=== PATIENT | female | born 1940 | race Caucasian/White ===

== ENCOUNTER 2016-12-21 23:02 | Emergency (ER) | payer MEDICARE, OTHER ==
[~2016-12-21] VITALS: Ht 157.5 cm; Wt 81.8 kg
[~2016-12-21 23:02] MED LIST: CALCIUM CITRAT200 MG PO; CENTRUM SILVER1 CTB PO; CENTRUM SILVER1 TA1 PO; CITRACAL + D CA1 TAB PO; CYMBALTA 20MG20 MG PO; DIOVAN 160MG160 MG PO; DIOVAN320 MG PO; DITROPAN 5MG TAB5 MG PO; EXALGO12 MG PO; JANUVIA 100MG100 MG PO; JANUVIA50 MG PO; KLOR-CON 1010 MEQ PO; LASIX 40MG TABL40 MG PO; LEVEMIR100 U/ML SQ; LIDODERM PATCH TP; METAMUCIL1 PDR PO; MIRALAX238G PO; NORCO 325 MG-101 TAB PO; PERCOCET 325 MG1 TA2 PO; PERCOCET 325 MG1 TAB PO; PRILOTC; PRILOTC PO; TENORMIN 5050 MG/TAB PO; TRICOR 48MG48 MG PO; TRICOR145 MG PO; ULTRAM 50MG TAB50 MG PO; ZETIA 10MG TAB10 MG PO
[2016-12-21 23:10] VITALS: BP 179/87; PULSE 77; TEMP 98.9
[2016-12-21] MEDS ORDERED: JANUMXR100-1000 PO (23:20)
[2016-12-21] MEDS ORDERED: MYRBETR50MG PO (23:22)
[2016-12-21] MEDS ORDERED: DESYREL 50MG50 MG PO (23:22)
[2016-12-21] MEDS ORDERED: EXALGO12 MG PO (23:44)
== END 2016-12-21 23:55 | disposition home or self-care (01) ==
LOC: COL.ER 23:02
DX: M54.42 Lumbago with sciatica, left side (principal); E11.9 Type 2 diabetes mellitus without complications; I10 Essential (primary) hypertension

== ENCOUNTER → 2017-01-05 | Outpatient (CLI) | payer MEDICARE ==
[~2017-01-05] MED LIST changes: +DESYREL 50MG50 MG PO; +JANUMXR100-1000 PO; +MYRBETR50MG PO
== END ==
LOC: SUN.DIA 08:45
DX: E11.65 Type 2 diabetes mellitus with hyperglycemia (principal); Z79.84 Long term (current) use of oral hypoglycemic drugs; Z79.4 Long term (current) use of insulin; E66.9 Obesity, unspecified; Z71.3 Dietary counseling and surveillance; E78.5 Hyperlipidemia, unspecified; I10 Essential (primary) hypertension

== ENCOUNTER 2017-01-27 13:49 | Emergency (ER) | payer MEDICARE, OTHER ==
[~2017-01-27] VITALS: Ht 157.5 cm; Wt 81.8 kg
[2017-01-27 13:54] VITALS: TEMP 98.3
[2017-01-27 15:59] VITALS: BP 156/78; PULSE 80
== END 2017-01-27 16:01 | disposition home or self-care (01) ==
LOC: COL.ER 13:49
DX: S09.90XA Unspecified injury of head, initial encounter (principal); S00.33XA Contusion of nose, initial encounter; S60.212A Contusion of left wrist, initial encounter; W01.198A Fall on same level from slipping, tripping and stumbling with subsequent striking against other object, initial encounter; R40.2412 Glasgow coma scale score 13-15, at arrival to emergency department; E11.9 Type 2 diabetes mellitus without complications; Z79.84 Long term (current) use of oral hypoglycemic drugs

== ENCOUNTER → 2017-03-25 | Outpatient (CLI) | payer MEDICARE | LOC: MC.RAD 09:58 | DX: Z12.31 Encounter for screening mammogram for malignant neoplasm of breast (principal) ==

== ENCOUNTER → 2017-06-23 | Outpatient (CLI) | payer MEDICARE | LOC: SUN.DIA 11:44 | DX: E11.9 Type 2 diabetes mellitus without complications (principal); Z79.4 Long term (current) use of insulin; E78.5 Hyperlipidemia, unspecified; I10 Essential (primary) hypertension; E66.9 Obesity, unspecified; Z68.34 Body mass index [BMI] 34.0-34.9, adult; Z71.3 Dietary counseling and surveillance; Z87.891 Personal history of nicotine dependence | CPT/HCPCS: G0108 ==

== ENCOUNTER → 2017-09-21 | Outpatient (CLI) | payer MEDICARE | LOC: SUN.DIA 08:39 | DX: E11.9 Type 2 diabetes mellitus without complications (principal); Z79.4 Long term (current) use of insulin; E78.5 Hyperlipidemia, unspecified; I10 Essential (primary) hypertension; E66.9 Obesity, unspecified; Z68.34 Body mass index [BMI] 34.0-34.9, adult; Z71.3 Dietary counseling and surveillance; Z87.891 Personal history of nicotine dependence ==

== ENCOUNTER 2017-11-09 07:53 | Outpatient (RCR) | payer MEDICARE | END 2018-02-07 | LOC: WSST | DX: R13.10 Dysphagia, unspecified (principal) | CPT/HCPCS: G8996-GN; G8997-GN ==

== ENCOUNTER → 2018-01-18 | Outpatient (CLI) | payer MEDICARE | LOC: COL.RAD 07:49 | DX: R13.10 Dysphagia, unspecified (principal) | CPT/HCPCS: G8996-GN; G8997-GN; G8998-GN ==

== ENCOUNTER → 2018-01-31 | Outpatient (CLI) | payer MEDICARE | LOC: SUN.DIA 01-13 14:13 | DX: E11.9 Type 2 diabetes mellitus without complications (principal); Z79.4 Long term (current) use of insulin; E78.5 Hyperlipidemia, unspecified; I10 Essential (primary) hypertension; E66.9 Obesity, unspecified; Z68.34 Body mass index [BMI] 34.0-34.9, adult; Z71.3 Dietary counseling and surveillance; Z87.891 Personal history of nicotine dependence | CPT/HCPCS: G0108 ==

== ENCOUNTER 2018-02-11 08:45 | Outpatient (RCR) | payer MEDICARE | END 2018-03-06 | disposition home or self-care (01) | LOC: WSPT | DX: R59.1 Generalized enlarged lymph nodes (principal); Z90.11 Acquired absence of right breast and nipple; Z85.3 Personal history of malignant neoplasm of breast; Z92.3 Personal history of irradiation | CPT/HCPCS: G8987-GP; G8988-GP ==

== ENCOUNTER → 2018-05-02 | Outpatient (CLI) | payer MEDICARE | LOC: SUN.DIA 03-14 09:10 | DX: E11.9 Type 2 diabetes mellitus without complications (principal); Z79.4 Long term (current) use of insulin; E78.5 Hyperlipidemia, unspecified; I10 Essential (primary) hypertension; E66.9 Obesity, unspecified; Z68.35 Body mass index [BMI] 35.0-35.9, adult; Z71.3 Dietary counseling and surveillance; Z87.891 Personal history of nicotine dependence | CPT/HCPCS: G0108 ==

== ENCOUNTER 2018-08-09 14:38 | Emergency (ER) | payer MEDICARE ==
[~2018-08-09] VITALS: Ht 157.5 cm; Wt 84.1 kg
[2018-08-09 14:42] VITALS: TEMP 98.9
[2018-08-09 15:22] LABS: BASO % 0.7 % (0.0-2.0); EOS # 0.7 (0.0-0.7); EOS % 10.7 % (0-4.0); GRAN # 2.9 (1.4-6.5); GRAN % 48.1 % (42.2-75.2); HEMOGLOBIN 11.1 g/dl (12.5-16.0); LYMPH # 1.8 (1.2-3.4); LYMPH % 30.3 % (20.0-51.0); MEAN CELL VOLUME 81 fl (80.0-100.0); MEAN CORPUSCULAR HEMOGLOBIN 27 pg (27.0-31.0); MEAN CORPUSCULAR HGB CONC 33 g/dl (33.0-37.0); MEAN PLATELET VOLUME 8.8 fl (7.4-10.4); MONO # 0.6 (0.1-0.6); MONO % 9.5 % (1.7-9.3); PLATELET COUNT 247 K/mm3 (130-400); RED BLOOD COUNT 4.17 M/mm3 (4.10-5.30); REDCELL DISTRIBUTION WIDTH-CV 13.9 % (11.5-14.5)
[2018-08-09 15:23] LABS: HEMATOCRIT 33.8 % (37.0-47.0)
[2018-08-09 15:48] LABS: ERYTHROCYTE SEDIMENTATION RATE 23 mm/hr (0-30)
[2018-08-09] MEDS ORDERED: PERCOCET 325 MG1 TA3 PO (16:01)
[2018-08-09 16:21] VITALS: BP 167/82; PULSE 92
== END 2018-08-09 16:23 | disposition home or self-care (01) ==
LOC: COL.ER 14:38
PROVIDERS: Family Medicine
DX: G89.29 Other chronic pain (principal); M54.42 Lumbago with sciatica, left side; F17.210 Nicotine dependence, cigarettes, uncomplicated; Z90.89 Acquired absence of other organs
CPT/HCPCS: J1170

== ENCOUNTER 2018-08-20 04:33 | Observation (INO) | payer MEDICARE ==
[~2018-08-20] VITALS: Ht 157.5 cm; Wt 84.1 kg
[~2018-08-20 04:33] MED LIST changes: -CYMBALTA 20MG20 MG PO; +CYMBALTA 60MG60 MG PO; +PERCOCET 325 MG1 TA3 PO
[2018-08-20 05:26] LABS: BASO % 0.4 % (0.0-2.0); EOS # 0.5 (0.0-0.7); EOS % 5.9 % (0-4.0); GRAN # 5.8 (1.4-6.5); GRAN % 64.4 % (42.2-75.2); HEMOGLOBIN 10.5 g/dl (12.5-16.0); LYMPH # 1.7 (1.2-3.4); MEAN CELL VOLUME 83 fl (80.0-100.0); MEAN CORPUSCULAR HEMOGLOBIN 27 pg (27.0-31.0); MEAN CORPUSCULAR HGB CONC 32 g/dl (33.0-37.0); MEAN PLATELET VOLUME 8.9 fl (7.4-10.4); MONO # 0.9 (0.1-0.6); PLATELET COUNT 208 K/mm3 (130-400); RED BLOOD COUNT 3.95 M/mm3 (4.10-5.30); REDCELL DISTRIBUTION WIDTH-CV 13.9 % (11.5-14.5)
[2018-08-20 05:27] LABS: HEMATOCRIT 32.8 % (37.0-47.0)
[2018-08-20 05:40] LABS: C-REACTIVE PROTEIN 7.9 mg/dL (0.0-0.9)
[2018-08-20 06:01] LABS: TROPONIN-I < 0.012 ng/mL (0.000-0.034)
[2018-08-20 06:19] LABS: ERYTHROCYTE SEDIMENTATION RATE 35 mm/hr (0-30)
[2018-08-20 10:04] VITALS: BP 137/65; PULSE 89; TEMP 98.9
[2018-08-20 11:08] VITALS: BP 135/56; PULSE 90; TEMP 98.8
[2018-08-20 13:10] LABS: ALBUMIN 3.8 gm/dL (3.5-5.0); BILIRUBIN,TOTAL 0.5 mg/dL (0.0-1.0); CALCIUM 9.1 mg/dL (8.4-10.2); CHOLESTEROL RISK RATIO 3.3; CREATININE, serum 0.98 mg/dL (0.52-1.25); MAGNESIUM 1.9 mg/dL (1.6-2.3); POTASSIUM 4.9 mmol/L (3.4-5.0); TOTAL PROTEIN 6.9 gm/dL (6.4-8.2); URIC ACID 4.1 mg/dL (2.5-6.2)
[2018-08-20 14:07] VITALS: TEMP 98.8
[2018-08-20 16:36] VITALS: BP 144/66; PULSE 102; TEMP 99.3
[2018-08-20 20:23] VITALS: BP 153/67; PULSE 103; TEMP 99.3
[2018-08-20 23:36] VITALS: BP 135/54; PULSE 96; TEMP 98.2
[2018-08-21 04:29] VITALS: BP 138/63; PULSE 75; TEMP 98.5
[2018-08-21 07:47] VITALS: BP 121/55; PULSE 77; TEMP 98.3
[2018-08-21 07:57] LABS: HEMOGLOBIN 10.4 g/dl (12.5-16.0); MEAN CELL VOLUME 84 fl (80.0-100.0); MEAN CORPUSCULAR HEMOGLOBIN 27 pg (27.0-31.0); MEAN CORPUSCULAR HGB CONC 32 g/dl (33.0-37.0); MEAN PLATELET VOLUME 9.2 fl (7.4-10.4); PLATELET COUNT 196 K/mm3 (130-400); RED BLOOD COUNT 3.89 M/mm3 (4.10-5.30); REDCELL DISTRIBUTION WIDTH-CV 14.2 % (11.5-14.5)
[2018-08-21 07:59] LABS: HEMATOCRIT 32.6 % (37.0-47.0)
[2018-08-21 11:57] VITALS: BP 124/49; PULSE 91; TEMP 99.8
[2018-08-21 16:57] VITALS: BP 135/62; PULSE 83; TEMP 98.9
[2018-08-21 18:45] VITALS: BP 135/55; PULSE 84; TEMP 98.2
[2018-08-21 23:24] VITALS: BP 126/64; PULSE 77; TEMP 98.7
[2018-08-22 07:06] LABS: HEMOGLOBIN 10.5 g/dl (12.5-16.0); MEAN CELL VOLUME 84 fl (80.0-100.0); MEAN CORPUSCULAR HEMOGLOBIN 27 pg (27.0-31.0); MEAN CORPUSCULAR HGB CONC 32 g/dl (33.0-37.0); MEAN PLATELET VOLUME 9.3 fl (7.4-10.4); PLATELET COUNT 222 K/mm3 (130-400); RED BLOOD COUNT 3.94 M/mm3 (4.10-5.30)
[2018-08-22 07:10] LABS: HEMATOCRIT 32.9 % (37.0-47.0)
[2018-08-22 07:20] VITALS: BP 135/59; PULSE 73; TEMP 98.5
[2018-08-22 07:21] LABS: CALCIUM 9.1 mg/dL (8.4-10.2); CREATININE, serum 1.23 mg/dL (0.52-1.25); POTASSIUM 4.7 mmol/L (3.4-5.0)
[2018-08-22 07:40] LABS: C-REACTIVE PROTEIN 16.1 mg/dL (0.0-0.9)
[2018-08-22 08:03] LABS: ERYTHROCYTE SEDIMENTATION RATE 86 mm/hr (0-30)
[2018-08-22] MEDS ORDERED: CLEOCIN HCL300 MG PO (10:21)
[2018-08-22 11:12] VITALS: BP 159/59; PULSE 78; TEMP 98.1
== END 2018-08-22 14:55 | disposition home or self-care (01) ==
LOC: COL.ER 04:33 → MEDICAL 08:15
PROVIDERS: Emergency Medicine; Family Medicine
DX: M79.601 Pain in right arm (principal); I89.0 Lymphedema, not elsewhere classified; M10.9 Gout, unspecified; E11.9 Type 2 diabetes mellitus without complications; I10 Essential (primary) hypertension; K21.9 Gastro-esophageal reflux disease without esophagitis; Z90.11 Acquired absence of right breast and nipple; Z79.4 Long term (current) use of insulin; Z96.651 Presence of right artificial knee joint; Z88.2 Allergy status to sulfonamides; Z88.1 Allergy status to other antibiotic agents; Z91.013 Allergy to seafood; Z85.3 Personal history of malignant neoplasm of breast; Z87.891 Personal history of nicotine dependence
CPT/HCPCS: G0378; J1170; J1644; J1815; J1940; J2405; J3010

== ENCOUNTER → 2019-01-18 | Outpatient (CLI) | payer MEDICARE ==
[~2019-01-18] MED LIST changes: +CLEOCIN HCL300 MG PO
== END ==
LOC: SUN.DIA 10-03 10:14
DX: E11.9 Type 2 diabetes mellitus without complications (principal); Z79.4 Long term (current) use of insulin; E78.5 Hyperlipidemia, unspecified; I10 Essential (primary) hypertension; E66.9 Obesity, unspecified; F17.210 Nicotine dependence, cigarettes, uncomplicated

== ENCOUNTER 2019-03-09 09:00 | Outpatient (RCR) | payer MEDICARE | END 2019-05-23 | disposition home or self-care (01) | LOC: WSST | DX: R13.10 Dysphagia, unspecified (principal); R05 Cough ==

== ENCOUNTER 2019-06-12 07:43 | Day surgery (SDC) | payer MEDICARE ==
[~2019-06-12] VITALS: Ht 157.5 cm; Wt 88.5 kg
[2019-06-12] MEDS ORDERED: K-TAB10 PO (08:33)
[2019-06-12] MEDS ORDERED: LASIX 20MG TABL20 MG PO (08:34)
[2019-06-12] MEDS ORDERED: ZOFRAN ODT4 MG PO (08:35)
[2019-06-12] MEDS ORDERED: ULTRAM 50MG TAB50 MG PO (08:37)
[2019-06-12 09:03] VITALS: BP 117/66; PULSE 81; TEMP 98.4
[2019-06-12] MEDS ORDERED: ZANTAC 150MG T150 MG PO (09:18)
[2019-06-12] MEDS ORDERED: MAGNESIUM250 M1 PO (09:20)
[2019-06-12] MEDS ORDERED: MELATONIN5 M1 SL (09:21)
[2019-06-12 09:35] VITALS: BP 104/87; PULSE 81; TEMP 98.4
[2019-06-12 09:50] VITALS: BP 130/56; PULSE 77
[2019-06-12 10:05] VITALS: BP 133/61; PULSE 77
--- NOTE | 2019-06-12 10:41 | NUR ---
PT BACK TO BAY 2 FROM PROCEDURE ROOM AND WAS A/OX3,LUNGS CLEAR, DIMINISHED, BOWEL SOUNDS PRESENT AND DENIES PAIN AND NAUSEA. WILL MONITOR
--- NOTE | 2019-06-12 10:47 | NUR ---
PT CONTINUES TO DENY PAIN, NAUSEA, VOMITING. PT IV WAS DISCONTINUED PER LEFT WRIST WITHOUT PAIN, REDNESS AND SWELLING AT INSERTION SITE. PT WAS PRESENT, DC INSTRUCTIONS GIVEN, PT AND SPOUSE VOICED UNDERSTANDING. PT TAKEN OUT PER HER W/C TO FAMILY VEHICLE.
== END 2019-06-12 10:15 | disposition home or self-care (01) ==
LOC: SDCO 07:43
DX: K31.84 Gastroparesis (principal); R13.10 Dysphagia, unspecified; R05 Cough; Z79.84 Long term (current) use of oral hypoglycemic drugs; F41.9 Anxiety disorder, unspecified; E11.9 Type 2 diabetes mellitus without complications; K21.9 Gastro-esophageal reflux disease without esophagitis; E78.00 Pure hypercholesterolemia, unspecified; I10 Essential (primary) hypertension; Z85.3 Personal history of malignant neoplasm of breast; Z96.651 Presence of right artificial knee joint; Z87.891 Personal history of nicotine dependence; Z90.11 Acquired absence of right breast and nipple; Z88.2 Allergy status to sulfonamides; Z88.1 Allergy status to other antibiotic agents; Z91.013 Allergy to seafood; M10.9 Gout, unspecified; G89.29 Other chronic pain; M54.5 Low back pain; Z92.3 Personal history of irradiation
CPT/HCPCS: J2704

== ENCOUNTER → 2019-07-11 | Outpatient (CLI) | payer MEDICARE ==
[~2019-07-11] MED LIST changes: +K-TAB10 PO; +LASIX 20MG TABL20 MG PO; +MAGNESIUM250 M1 PO; +MELATONIN5 M1 SL; +ZANTAC 150MG T150 MG PO; +ZOFRAN ODT4 MG PO
== END ==
LOC: COL.RAD 06:41
DX: K30 Functional dyspepsia (principal)
CPT/HCPCS: A9541

== ENCOUNTER → 2019-07-17 | Outpatient (CLI) | payer MEDICARE | LOC: DIA.ED 09:57 | DX: E11.9 Type 2 diabetes mellitus without complications (principal); E78.5 Hyperlipidemia, unspecified; I10 Essential (primary) hypertension; E66.9 Obesity, unspecified; Z79.4 Long term (current) use of insulin | CPT/HCPCS: G0270 ==

== ENCOUNTER → 2019-08-23 | Outpatient (CLI) | payer MEDICARE | LOC: COL.RAD 09:16 | DX: K82.4 Cholesterolosis of gallbladder (principal) ==

== ENCOUNTER → 2019-10-06 | Outpatient (CLI) | payer MEDICARE | LOC: COL.LAB 13:50 → COL.RAD 13:50 | DX: R60.0 Localized edema (principal) ==

== ENCOUNTER 2020-04-16 16:07 | Outpatient (CLI) | payer MEDICARE ==
[~2020-04-16] VITALS: Ht 157.5 cm; Wt 85.0 kg
[2020-04-16 16:52] LABS: CALCIUM 9.4 mg/dL (8.4-10.2); CREATININE, serum 1.02 (0.52-1.25); POTASSIUM 3.7 mmol/L (3.4-5.0)
[2020-04-16 17:00] VITALS: BP 102/62; PULSE 72; TEMP 97.4
[2020-04-16 19:03] LABS: COLLECTION METHOD CLEAN CATCH
[2020-04-16 19:09] LABS: PH 8 (5-8); SQUAMOUS EPITHELIAL 0-2 /hpf; URINE APPEARANCE Clear; URINE BACTERIA Rare /hpf; URINE BILIRUBIN Negative (NEGATIVE); URINE BLOOD Negative (NEGATIVE); URINE COLOR Yellow; URINE GLUCOSE Negative (NEGATIVE); URINE KETONE Negative (NEGATIVE); URINE LEUKOCYTE ESTERASE Negative (NEGATIVE); URINE NITRATE Negative (NEGATIVE); URINE PROTEIN(semi-quant) Negative (NEGATIVE); URINE RBC 0-2 /hpf; URINE UROBILINOGEN Negative (NEGATIVE)
== END 2020-04-16 19:06 | disposition home or self-care (01) ==
LOC: EUO 16:07
PROVIDERS: Family Medicine
DX: E86.0 Dehydration (principal)
CPT/HCPCS: J2405; J7030

== ENCOUNTER → 2020-07-15 | Outpatient (CLI) | payer MEDICARE | LOC: ZCOL.LAB 17:38 | DX: Z20.828 Contact with and (suspected) exposure to other viral communicable diseases (principal) ==

== ENCOUNTER → 2022-04-10 | Outpatient (CLI) | payer MEDICARE | LOC: COL.VAS 07:32 | DX: R60.0 Localized edema (principal) ==

== ENCOUNTER → 2022-08-20 | Outpatient (CLI) | payer MEDICARE | LOC: COL.VAS 10:51 | DX: M79.89 Other specified soft tissue disorders (principal) ==

== ENCOUNTER 2022-12-12 09:23 | Emergency (ER) | payer MEDICARE ==
[~2022-12-12] VITALS: Ht 157.5 cm; Wt 81.8 kg
[2022-12-12 09:27] VITALS: TEMP 98.2
[2022-12-12 10:08] LABS: BASO # 0.1 K/mm3 (0.0-0.2); BASO % 0.6 % (0.0-2.0); EOS # 0.2 K/mm3 (0.0-0.7); EOS % 2.1 % (0.0-4.0); GRAN # 8.4 K/mm3 (1.4-6.5); GRAN % 78.3 % (42.2-75.2); HEMOGLOBIN 11.3 g/dl (12.5-16.0); LYMPH # 1.5 K/mm3 (1.2-3.4); LYMPH % 14.4 % (20.0-51.0); MEAN CELL VOLUME 83 fl (80.0-100.0); MEAN CORPUSCULAR HEMOGLOBIN 26 pg (27-31); MEAN CORPUSCULAR HGB CONC 31 g/dl (33.0-37.0); MONO # 0.4 K/mm3 (0.1-0.6); PLATELET COUNT 259 K/mm3 (130-400); RED BLOOD COUNT 4.34 M/mm3 (4.10-5.30); REDCELL DISTRIBUTION WIDTH-CV 13.9 % (11.5-14.5)
[2022-12-12 10:22] LABS: ALBUMIN 3.9 gm/dL (3.4-4.8); BILIRUBIN,TOTAL 0.4 mg/dL (0.2-1.2); CREATININE, serum 1.46 mg/dL (0.57-1.11); POTASSIUM 4.4 mmol/L (3.5-4.5); TOTAL PROTEIN 8.2 gm/dL (6.2-8.1)
[2022-12-12 10:28] LABS: TROPONIN-I 0.016 ng/mL (0.00-0.033)
[2022-12-12 11:29] LABS: COLLECTION METHOD CLEAN CATCH
[2022-12-12 11:55] LABS: MUCOUS Present (NOT PRESENT); URINE BACTERIA Rare /hpf (NONE SEEN); URINE RBC 0-2 /hpf (0-2)
[2022-12-12 12:19] LABS: URINE APPEARANCE Clear (CLEAR/HAZY); URINE BLOOD 1+ (NEGATIVE); URINE COLOR Yellow (YELLOW); URINE GLUCOSE 2+ (NEGATIVE); URINE KETONE Negative (NEGATIVE); URINE NITRATE Negative (NEGATIVE); URINE PROTEIN(semi-quant) 3+ (NEGATIVE); URINE UROBILINOGEN 0.2 E.U/dL (0.2-1.0)
[2022-12-12 12:40] VITALS: BP 181/98; PULSE 85
== END 2022-12-12 12:40 | disposition home or self-care (01) ==
LOC: COL.ER 09:23
PROVIDERS: Emergency Medicine
DX: S09.90XA Unspecified injury of head, initial encounter (principal); S30.0XXA Contusion of lower back and pelvis, initial encounter; S00.03XA Contusion of scalp, initial encounter; Z87.891 Personal history of nicotine dependence; W19.XXXA Unspecified fall, initial encounter
CPT/HCPCS: J1885; J7050

== ENCOUNTER 2024-04-25 08:09 | Day surgery (SDC) | payer MEDICARE ==
[~2024-04-25] VITALS: Ht 157.5 cm; Wt 80.9 kg
[~2024-04-25 08:09] MED LIST changes: +LR 1,000 ML IV SCH; -MAGNESIUM250 M1 PO; +MAGNESIUM500 MG PO; +Ondansetron 4 MG/2 ML VIAL IV PRN
[2024-04-25 08:57] VITALS: BP 164/83; PULSE 78; TEMP 98.1
--- NOTE | 2024-04-25 09:04 | NUR ---
Pt arrived with granddaughter, VSS and WNL for procedure, RR even and unlabored; consents reviewed and signed, no questions/concerns; 20G IV to L wrist, flushes well and fluids attached; blood glucose 110; reviewed meds/pharm/allergies/history. RUE restriction band placed due to hx lymph node removal and edema.
[2024-04-25] MEDS ORDERED: OZEMPIC1 MG/0.71 SQ (09:07)
[2024-04-25] MEDS ORDERED: PROTONIX 40MG T40 MG PO (09:15)
[2024-04-25] MEDS ORDERED: FARXIGA5 PO (09:16)
[2024-04-25] MEDS ORDERED: JANUVIA 100MG100 MG PO (09:16)
[2024-04-25] MEDS ORDERED: IRON PO (09:17)
[2024-04-25] MEDS ORDERED: PRINIVIL40 MG PO (09:18)
[2024-04-25] MEDS ORDERED: Lidocaine PF 2% (20 MG/ML) 5 ML VIAL ONE (09:28)
[2024-04-25 10:01] VITALS: BP 145/75; PULSE 82
== END 2024-04-25 11:30 | disposition home or self-care (01) ==
LOC: SDCO 08:09
DX: F45.8 Other somatoform disorders (principal); R10.13 Epigastric pain; Z87.891 Personal history of nicotine dependence
CPT/HCPCS: C1769; J2704; J7120

== ENCOUNTER 2024-08-29 18:54 | Emergency (ER) | payer MEDICARE ==
[~2024-08-29] VITALS: Ht 157.5 cm; Wt 79.1 kg
[~2024-08-29 18:54] MED LIST changes: +FARXIGA5 PO; +IRON PO; -LR 1,000 ML IV SCH; +OZEMPIC1 MG/0.71 SQ; -Ondansetron 4 MG/2 ML VIAL IV PRN; +PRINIVIL40 MG PO; +PROTONIX 40MG T40 MG PO
[2024-08-29 18:56] VITALS: TEMP 101.7
[2024-08-29] MEDS ORDERED: Acetaminophen 500 MG TAB PO ONE (19:30)
[2024-08-29 19:31] LABS: BASO # 0.1 K/mm3 (0.0-0.2); BASO % 0.5 % (0.0-2.0); EOS # 0.2 K/mm3 (0.0-0.7); EOS % 1.5 % (0.0-4.0); GRAN # 9.2 K/mm3 (1.4-6.5); GRAN % 79.1 % (42.2-75.2); LYMPH # 1.3 K/mm3 (1.2-3.4); LYMPH % 11.4 % (20.0-51.0); MEAN CELL VOLUME 85 fl (80.0-100.0); MEAN CORPUSCULAR HGB CONC 31 g/dl (33.0-37.0); MEAN PLATELET VOLUME 9.3 fl (7.4-10.4); MONO # 0.8 K/mm3 (0.1-0.6); MONO % 6.9 % (1.7-9.3); PLATELET COUNT 326 K/mm3 (130-400); RED BLOOD COUNT 3.79 M/mm3 (4.10-5.30); REDCELL DISTRIBUTION WIDTH-CV 14.6 % (11.5-14.5)
[2024-08-29 19:36] LABS: HEMATOCRIT 32.1 % (37.0-47.0); HEMOGLOBIN 9.9 g/dl (12.5-16.0); MEAN CORPUSCULAR HEMOGLOBIN 26 pg (27-31)
[2024-08-29 19:39] LABS: INR 1.1 (0.8-3.0); PROTHROMBIN TIME 11.6 SECONDS (9.7-12.8)
[2024-08-29 19:42] LABS: ARTERIAL BLD GAS O2 SATURATION 97.3 % (92-100); ARTERIAL BLOOD GAS BASE EXCESS 10.2 (-2-2); ARTERIAL BLOOD GAS HCO3 34.6 meq/L (22-26); ARTERIAL BLOOD GAS PCO2 45.9 mmHg (35-45); ARTERIAL BLOOD GAS PO2 94.5 mmHg (80-100)
[2024-08-29 19:44] LABS: ALBUMIN 3.3 g/dL (3.4-4.8); BILIRUBIN,TOTAL 0.3 mg/dL (0.2-1.2); CALCIUM 9.8 mg/dL (8.4-10.2); CREATININE, serum 1.59 mg/dL (0.57-1.11); POTASSIUM 3.8 mEq/L (3.5-4.5); TOTAL PROTEIN 7.5 g/dl (6.2-8.1)
[2024-08-29 19:50] LABS: TROPONIN-I 0.024 ng/mL (0.00-0.033)
[2024-08-29 20:08] LABS: COLLECTION METHOD CLEAN CATCH
[2024-08-29] MEDS ORDERED: Iohexol 350 - 100 ML VIAL IV ONE (20:16)
[2024-08-29] MEDS ORDERED: MAGNESIUM500 MG PO (20:16)
[2024-08-29] MEDS ORDERED: FARXIGA5 PO (20:18)
[2024-08-29] MEDS ORDERED: MYRBETR50MG PO (20:19)
[2024-08-29 20:20] LABS: PH 7.5 (5.0-8.5); URINE APPEARANCE CLOUDY (CLEAR/HAZY); URINE BLOOD NEGATIVE (NEGATIVE); URINE COLOR YELLOW (YELLOW); URINE GLUCOSE 2+ (NEGATIVE); URINE KETONE NEGATIVE (NEGATIVE); URINE NITRATE NEGATIVE (NEGATIVE); URINE PROTEIN(semi-quant) 2+ (NEGATIVE); URINE UROBILINOGEN 0.2 E.U/dL (0.2-1.0)
[2024-08-29] MEDS ORDERED: NS 100 ML IV ONE (20:20)
[2024-08-29] MEDS ORDERED: cefTRIAXone 1 G in Water For Injection,Sterile 10 ML IV ONE (21:15)
[2024-08-29] MEDS ORDERED: NS 1,000 ML IV ONE (21:15)
[2024-08-29] MEDS ORDERED: CEPHALEXIN500 M1 PO (21:47)
[2024-08-29 22:40] VITALS: BP 160/72; PULSE 92
== END 2024-08-29 22:40 | disposition home or self-care (01) ==
LOC: COL.ER 18:54
PROVIDERS: Emergency Medicine
DX: R06.02 Shortness of breath (principal); N39.0 Urinary tract infection, site not specified; R07.2 Precordial pain; E11.9 Type 2 diabetes mellitus without complications; Z79.4 Long term (current) use of insulin; Z99.81 Dependence on supplemental oxygen; Z88.1 Allergy status to other antibiotic agents; Z88.2 Allergy status to sulfonamides
CPT/HCPCS: J0696; J7030; Q9967